=== PATIENT | female | born 1975 | race African-American/Black ===

== ENCOUNTER 2019-04-20 09:03 | Emergency (ER) | payer SELFPAY ==
[2019-04-20 09:29] VITALS: TEMP 98.7; BMI 31.9
--- NOTE | 2019-04-20 09:33 | PDOC ---
History of Present Illness - General Chief Complaint: Chest Pain Stated Complaint: BLOOSD CLOT Time Seen by Provider: 04/20/19 09:32 History Source: Patient Exam Limitations: No Limitations - History of Present Illness Initial Comments: 04/20/19 09:35 Ms. Montesinos is a 43 yo PMHx of anemia, migraine without aura, h/o provoked PE (after induced delivery for 3rd trimester demise) Patient was placed on Eliquis for 3 months. 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 She had no follow-up studies after completing 3 months of treatment on Eliquis It is unclear to me if patient had a coagulation work up Patient reports that for the past week she is noticed left lower extremity pain which is intermittent, no swelling This morning she awoke at 6 AM with severe right-sided chest pain. Pain is described as sharp, severe, greater than 10/10, patient also feels pain in her upper back. Pain is worse if she takes a deep breath. No fevers or chills. No recent colds or upper respiratory infections. Patient's last travel was one year ago. Patient does not believe she is . Is not on oral contraceptives. Patient does not smoke PAST MEDICAL HISTORY: anemia, migraine without aura PAST SURGICAL HISTORY: Denies Social History: Smoking: Denies Alcohol: Social Drugs: Denies Family History: Mother-66yrs HTNsive Allergies No Known Allergies Allergy (Verified 01/17/18 04:32) ROS: GENERAL/CONSTITUTIONAL: No: fever, chills, weakness, loss of appetite. HEAD, EYES, EARS, NOSE AND THROAT: No: change in vision, ear pain, discharge, sore throat, throat swelling. CARDIOVASCULAR: Yes: Chest pain, pleuritic chest pain no: lightheadedness, palpitations, syncope RESPIRATORY: No: cough, shortness of breath, wheezing, hemoptysis, stridor. GASTROINTESTINAL: No: nausea, vomiting, diarrhea, abdominal pain GENITOURINARY: No: dysuria, hematuria, frequency, urgency, flank pain. MUSCULOSKELETAL: Yes: Right upper thoracic back pain no: neck pain, joint pain, muscle swelling or pain SKIN: No: lesions, pallor, rash or easy bruising. NEUROLOGIC: No: headache, vertigo, paresthesias, weakness ENDOCRINE: No: unexplained weight gain or loss HEMATOLOGIC/LYMPHATIC: No: anemia, easy bleeding, swelling nodes. PE: GENERAL: The patient is in no acute distress, no tachycardia, no hypoxia, patient is very anxious. HEAD: Normal EYES: PERRLA, EOMI, sclera anicteric, conjunctiva clear. ENT: Ears normal, nares patent, oropharynx clear without exudates. Moist mucous membranes. NECK: Normal range of motion, supple LUNGS: Breath sounds equal, clear to auscultation bilaterally. No wheezes, and no crackles. HEART:Regular rate and rhythm, normal S1 and S2, no murmur appreciated ABDOMEN: Soft, nontender, normoactive bowel sounds. No guarding, no rebound. EXTREMITIES: Normal range of motion, no edema. NEUROLOGICAL: Cranial nerves II through XII grossly intact. Normal speech. No focal neurological deficits. MUSCULOSKELETAL: Back non-tender to palpation SKIN: Warm, Dry, normal turgor, no rashes or lesions noted. 04/21/19 07:37 Is this a multiple visit Asthma Patient?: No Past History - Past Medical History Allergies/Adverse Reactions: Allergies Allergy/AdvReac Type Severity Reaction Status Date / Time No Known Allergies Allergy Verified 04/20/19 09:29 Home Medications: Ambulatory Orders Docusate Sodium [Colace -] 100 mg PO BID 01/19/18 Apixaban [Eliquis] 10 mg PO BID #56 tablet 01/24/18 COPD: No Other medical history: PE - Psycho Social/Smoking Cessation Hx Smoking History: Never smoked Hx Alcohol Use: No Drug/Substance Use Hx: No Substance Use Type: None Hx Substance Use Treatment: No *Physical Exam - Vital Signs Last Vital Signs Temp Pulse Resp BP Pulse Ox 98.7 F 76 16 119/87 98 04/20/19 09:26 04/20/19 09:26 04/20/19 09:26 04/20/19 09:26 04/20/19 09:26 ED Treatment Course - LABORATORY CBC & Chemistry Diagram: 04/20/19 09:42 04/20/19 09:42 Medical Decision Making - Critical Care Time Total Critical Care Time (minutes): 120 Critical Care Statement: The care of this patient involved high complexity decision making to prevent further life threatening deterioration of the patient 's condition and/or to evaluate & treat vital organ system(s) failure or risk of failure. - Medical Decision Making 04/20/19 09:47 43-year-old female presenting to the emergency department with a complaint of chest pain which is similar to her prior presentation with a presumably provoked pulmonary embolism. Chest pain began this morning. Differential diagnosis includes but is not limited to: cardiac ischemia, pe, asthma exacerbation, pneumonia, pneumothorax, pleural effusion, aortic dissection, costochondritis, pericarditis, GERD. We will do: Labs EKG delivery room supervisor CTA chest We will reassess Analgesia 04/20/19 09:51 EKG: Artifact at baseline, sinus rhythm, rate of 80 bpm, axis is normal, intervals are normal-SD: 152ms, QRS:66ms, QTc:411ms, no clear ST elevations, no S wave in lead I no visible Q wave in lead III 04/20/19 11:05 Call again placed to the lab coffee machine technician is saying that there was an issue with the barcode reader The labs will be delayed by another 15 minutes 04/20/19 11:06 Laboratory Tests 04/20/19 04/20/19 04/20/19 09:42 09:42 09:42 WBC 4.0 Hgb 13.4 Hct 40.6 Plt Count 256 INR D-Dimer 648 H Creatine Kinase 139 Troponin I < 0.02 Serum , Qual 04/20/19 04/20/19 09:42 09:42 WBC Hgb Hct Plt Count INR 0.99 D-Dimer Creatine Kinase Troponin I Serum , Qual Negative 04/20/19 13:01 POCUS Duplex: no DVT present CTA Chest: No evidence of pulmonary embolism within the main pulmonary artery or its branches. Normal size and enhancement of the thoracic and upper abdominal aorta without aneurysmal dilatation or dissection Small amount of fluid seen in the superior mediastinum along the superior margin of the aortic arch which is nonspecific No enlarged nodes call placed to Dr Marie He has reviewed these images as well as the patient's prior images The fluid he has seen is new as compared to prior CT 04/20/19 13:[address] surgery 04/20/19 13:[address] Escobar for CT surgery 04/20/19 13:38 Dr. Escobar has reviewed the CT scan. He is concerned that this is a type A dissection. This was discussed with the patient. We will transfer to [facility] Clinical impression: Chest pain, initial presentation Possible aortic dissection, initial presentation Discharge - Discharge Information Problems reviewed: Yes Clinical Impression/Diagnosis: Aortic dissection Qualifiers: Aortic location: thoracic aorta Qualified Code(s): I71.01 - Dissection of thoracic aorta Condition: Critical Disposition: TRANSFER ACUTE CARE/OTHER HOSP - Admission No - Follow up/Referral - Patient Discharge Instructions - Post Discharge Activity - Transfer to Acute Care Facility Receiving Facility Name: [facility] Accepting Physician:: Dr. Mendoza
[2019-04-20] MEDS ORDERED: SODIUM CHLORIDE 1,000 ML IV STA (09:34)
[2019-04-20] MEDS ORDERED: ACETAMINOPHEN 1000 MG/100 ML VIAL (NON FORMULARY) IVPB ONE (09:49)
[2019-04-20 10:00] LABS: BASO % 0.9 % (0-2.0); EOS % 2.3 % (0-4.5); HEMATOCRIT 40.6 % (32.4-45.2); HEMOGLOBIN 13.4 GM/dL (10.7-15.3); LYMPH % 37.4 % (8-40); MCH 29.9 pg (25.7-33.7); MCHC 32.9 g/dl (32.0-36.0); MEAN CELL VOLUME 90.8 fl (80-96); MEAN PLT VOLUME 8.4 fl (7.5-11.1); MONO % 8.4 % (3.8-10.2); PLATELET COUNT 256 K/MM3 (134-434); RBC 4.47 M/mm3 (3.60-5.2); RDW 14.9 % (11.6-15.6)
[2019-04-20] MEDS ORDERED: ACETAMINOPHEN INJECTION 100 ML IVPB ONE (10:03)
[2019-04-20 10:14] LABS: INR 0.99 (0.83-1.09); PROTHROMBIN TIME (PATIENT) 11.7 SEC (9.7-13.0)
[2019-04-20] MEDS ORDERED: morphine CARPU-JECT 4 MG/1 ML DISP.SYRIN IVPUSH ONE (10:42)
[2019-04-20] MEDS ORDERED: morphine SULFATE 4 MG/ML VIAL ONE (10:46)
[2019-04-20 11:09] LABS: POTASSIUM 4.2 mmol/L (3.5-5.1)
[2019-04-20 11:10] LABS: CALCIUM 9.1 mg/dL (8.5-10.1)
[2019-04-20 11:12] LABS: ALBUMIN 3.4 g/dl (3.4-5.0); BLOOD UREA NITROGEN 4.3 mg/dL (7-18)
[2019-04-20 11:14] LABS: CREATININE 0.8 mg/dL (0.55-1.3)
[2019-04-20 11:27] LABS: BILIRUBIN,TOTAL 0.5 mg/dL (0.2-1); N-TERMINAL BNP 124.7 pg/ml (5-125); TOT PROT 6.8 g/dl (6.4-8.2)
[2019-04-20 15:20] VITALS: BP 113/72; PULSE 76
--- NOTE | 2019-04-21 15:04 | EKG ---
Test Reason : Blood Pressure : / mmHG Vent. Rate : 088 BPM Atrial Rate : 088 BPM P-R Int : 152 ms QRS Dur : 066 ms QT Int : 340 ms P-R-T Axes : 040 023 024 degrees QTc Int : 411 ms POOR DATA QUALITY, INTERPRETATION MAY BE ADVERSELY AFFECTED UNDETERMINED RHYTHM OTHERWISE NORMAL ECG WHEN COMPARED WITH ECG OF 19-JAN-2018 08:43, CURRENT UNDETERMINED RHYTHM PRECLUDES RHYTHM COMPARISON, NEEDS REVIEW Confirmed by SHERITA FREEMAN MD ([id number]) on 04/21/2019 3:03:33 PM Referred By: Confirmed By:SHERITA FREEMAN MD
== END 2019-04-20 14:45 | disposition short-term general hospital (02) ==
LOC: JER 09:03
PROC: 3E033NZ Introduction of Analgesics, Hypnotics, Sedatives into Peripheral Vein, Percutaneous Approach (ICD-10-PCS; principal; 2019-04-20)
PROC: 3E033NZ Introduction of Analgesics, Hypnotics, Sedatives into Peripheral Vein, Percutaneous Approach (ICD-10-PCS; 2019-04-20)
DX: I71.01 Dissection of thoracic aorta (principal)
CPT/HCPCS: 36415; 71275-TC; 80053; 82550; 83880; 84484; 84703; 85025; 85379; 85610; 93005; 93010; 93970; 99284-25; J0131; J7030

== ENCOUNTER 2024-10-08 08:26 | Emergency (ER) | payer OTHER ==
[2024-10-08 08:32] VITALS: BP 124/78; PULSE 86; RESP 20; TEMP 97.9; BMI 42.0
[2024-10-08] MEDS ORDERED: IBUPROFEN 600 MG TABLET (FP) PO ONE (09:33)
[2024-10-08] MEDS ORDERED: ACETAMINOPHEN 500 MG TABLET (FP) ONE (09:33)
[2024-10-08] MEDS ORDERED: LORATADINE 10 MG TABLET ONE (09:33)
[2024-10-08] MEDS: LORATADINE 10 MG TABLET PO ONE (09:35)
[2024-10-08] MEDS: ACETAMINOPHEN 500 MG TABLET (FP) PO ONE (09:35)
[2024-10-08] MEDS: IBUPROFEN 400 MG TABLET (FP) PO ONE (09:35)
== END 2024-10-08 10:45 | disposition home or self-care (01) ==
LOC: JERFT 08:26
DX: M25.511 Pain in right shoulder (principal); M25.561 Pain in right knee; R06.7 Sneezing; H57.89 Other specified disorders of eye and adnexa; J02.9 Acute pharyngitis, unspecified; J30.9 Allergic rhinitis, unspecified; V03.10XA Pedestrian on foot injured in collision with car, pick-up truck or van in traffic accident, initial encounter; Y92.410 Unspecified street and highway as the place of occurrence of the external cause; Y93.01 Activity, walking, marching and hiking
CPT/HCPCS: 0241U-QW; 99283-25